=== PATIENT | male | born 1955 | race Caucasian/White ===

== ENCOUNTER 2021-09-23 11:29 | Emergency (ER) | payer MEDICARE, SELFPAY ==
[2021-09-23 11:44] VITALS: BP 149/95; PULSE 78; RESP 18; TEMP 36.6; O2SAT 96; BMI 21.6
[2021-09-23 11:59] VITALS: BP 139/87; PULSE 82; RESP 14; O2SAT 96
--- NOTE | 2021-09-23 12:18 | ED_ITS ---
Documented by User: HERNAN Gilbert 09/23/21 13:17 HPI - COVID General: Chief Complaint: COVID symptoms Stated Complaint: COVID+ home test Time Seen by Provider: 09/23/21 11:58 Triage information: Has fever, cough or shortness of breath . History of Present Illness: Patient at home Covid test today that was positive. Patient started symptoms 2 days ago. With fever chills and body aches. Patient is fully immunized with 3 immunizations. Patient is desiringoral treatment. Prior covid testing: yes, results known Prior testing date: 09/23/21 COVID 19 common symptoms: positive fever(s), chills and body aches; negative dyspnea, headache(s), throat pain, nausea or vomiting COVID 19 other sytmptoms: negative chest pain Onset (ago): day(s) (2) Severity: mild Pertinent comorbid conditions: heart disease (History of stents) COVID Results: No Data to Display Review of Systems Const: Reports: fever(s), chills and body aches Eyes: Denies: eye discomfort ENMT: Denies: throat pain Card: Denies: chest pain Resp: Denies: dyspnea GI: Denies: abdominal pain, nausea or vomiting Skin/Breast: Denies: rash Neuro: Denies: headache(s) Psych: Denies: depression or suicidal ideation Physical Exam Const: COMMON NORMALS: no acute distress, patient oriented x3 and alert HENMT: COMMON NORMALS: normocephalic and external ears normal HEAD & SCALP: normocephalic EXTERNAL EAR: Yes external ears normal Eye: COMMON NORMALS: EOMs intact bilaterally Neck/C-Spine: COMMON NORMALS: no JVD Resp: COMMON NORMALS: normal respiratory effort and No use of accessory muscles Cardio: COMMON NORMALS: no JVD GI: INSPECTION: Yes normal to inspection Extremity: COMMON NORMALS: normal to inspection and full ROM Neuro: COMMON NORMALS: patient oriented x3 SENSORIUM/ORIENTATION: Yes alert Psych: COMMON NORMALS: mental status grossly normal Skin: COMMON NORMALS: no rashes or lesions noted GENERAL SKIN EXAM: no rashes or lesions noted Course Vital Signs: Vital signs: Vital Signs Temperature 98.2 F 09/23/21 13:27 Pulse Rate 80 09/23/21 13:27 Respiratory Rate 15 09/23/21 13:27 Blood Pressure 141/93 09/23/21 13:27 Pulse Oximetry 96 09/23/21 13:27 MDM - COVID Medical Decision Making Patient with a positive Covid home 19 test this morning. Patient has mild symptoms. Symptoms started 2 days ago. Patient was given a prescription for Paxil bed lab work was done and outpatient order was filled out through the [facility] pharmacy. Lab Data : 09/23/21 12:45 Laboratory Results Sodium 140 mmol/L (136-145) 09/23/21 12:45 Potassium 4.2 mmol/L (3.5-5.1) 09/23/21 12:45 Chloride 105 mmol/L (98-107) 09/23/21 12:45 Carbon Dioxide 28 mmol/L (22-29) 09/23/21 12:45 Anion Gap 11.2 (5-19) 09/23/21 12:45 BUN 12 mg/dL (8-23) 09/23/21 12:45 Creatinine 1.0 mg/dL (0.7-1.2) 09/23/21 12:45 GFR Calculation 75.0 mL/min (90-130) L 09/23/21 12:45 Glucose 103 mg/dL (65-115) 09/23/21 12:45 Calculated Osmolality 290 mOsm/kg (285-295) 09/23/21 12:45 Calcium 9.0 mg/dL (8.5-10.5) 09/23/21 12:45 Total Bilirubin 0.3 mg/dL (0.15-1.2) 09/23/21 12:45 AST 36 U/L (0-40) 09/23/21 12:45 ALT 31 U/L (0-41) 09/23/21 12:45 Alkaline Phosphatase 70 IU/L (40-130) 09/23/21 12:45 Total Protein 6.8 g/dL (6.6-8.7) 09/23/21 12:45 Albumin 4.4 g/dL (3.5-5.2) 09/23/21 12:45 Globulin 2.4 g/dL (1.3-4.6) 09/23/21 12:45 No Data to Display Discharge Plan Discharge Patient Disposition: Home Clinical Impression: COVID-19 Condition: Stable Prescriptions: No Action Aspir-81 81 mg Tablet,Delayed Release (Dr/Ec) 81 mg PO BEDTIME 0RF omeprazole 20 mg capsule,delayed release(DR/EC) 20 mg PO QAM 0RF rosuvastatin 40 mg tablet 40 mg PO BEDTIME 0RF Discharge Orders: Discharge ED (Routine); Ordered 09/23/21 Ordered By: Amauri Jean Baptiste Discharge Diet: Usual diet Discharge Activity: Increase activity as tolerated Patient Instructions: COVID-19 (Coronavirus Disease 2019) (ED) Activity Restrictions/Additional Instructions: prescription order was faxed over to [facility] outpatient pharmacy. 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 Coding Level of Care Code ED Specimen Preparation Assistant for Chg Fwd Exam Comprehensive Documented by User: Jaime Castro MD 09/29/21 21:10 HPI - COVID General: Chief Complaint: COVID symptoms Stated Complaint: COVID+ home test Time Seen by Provider: 09/23/21 11:58 COVID Results: No Data to Display Course Vital Signs: Vital signs: Vital Signs Temperature 98.2 F 09/23/21 13:27 Pulse Rate 80 09/23/21 13:27 Respiratory Rate 15 09/23/21 13:27 Blood Pressure 141/93 09/23/21 13:27 Pulse Oximetry 96 09/23/21 13:27 MDM - COVID Medical Decision Making Patient with a positive Covid home 19 test this morning. Patient has mild symptoms. Symptoms started 2 days ago. Patient was given a prescription for Paxil bed lab work was done and outpatient order was filled out through the [facility] pharmacy. I have reviewed documentation by Amauri Jean Baptiste GEOCHEMISTRY TEACHER. I suspect he meant paxlovid. Jaime Castro MD Emergency Medicine Lab Data : 09/23/21 12:45 Laboratory Results Sodium 140 mmol/L (136-145) 09/23/21 12:45 Potassium 4.2 mmol/L (3.5-5.1) 09/23/21 12:45 Chloride 105 mmol/L (98-107) 09/23/21 12:45 Carbon Dioxide 28 mmol/L (22-29) 09/23/21 12:45 Anion Gap 11.2 (5-19) 09/23/21 12:45 BUN 12 mg/dL (8-23) 09/23/21 12:45 Creatinine 1.0 mg/dL (0.7-1.2) 09/23/21 12:45 GFR Calculation 75.0 mL/min (90-130) L 09/23/21 12:45 Glucose 103 mg/dL (65-115) 09/23/21 12:45 Calculated Osmolality 290 mOsm/kg (285-295) 09/23/21 12:45 Calcium 9.0 mg/dL (8.5-10.5) 09/23/21 12:45 Total Bilirubin 0.3 mg/dL (0.15-1.2) 09/23/21 12:45 AST 36 U/L (0-40) 09/23/21 12:45 ALT 31 U/L (0-41) 09/23/21 12:45 Alkaline Phosphatase 70 IU/L (40-130) 09/23/21 12:45 Total Protein 6.8 g/dL (6.6-8.7) 09/23/21 12:45 Albumin 4.4 g/dL (3.5-5.2) 09/23/21 12:45 Globulin 2.4 g/dL (1.3-4.6) 09/23/21 12:45 No Data to Display Discharge Plan Discharge Patient Disposition: Home Clinical Impression: COVID-19 Condition: Stable Prescriptions: No Action Aspir-81 81 mg Tablet,Delayed Release (Dr/Ec) 81 mg PO BEDTIME 0RF omeprazole 20 mg capsule,delayed release(DR/EC) 20 mg PO QAM 0RF rosuvastatin 40 mg tablet 40 mg PO BEDTIME 0RF Discharge Orders: Discharge ED (Routine); Ordered 09/23/21 Ordered By: Amauri Jean Baptiste Discharge Diet: Usual diet Discharge Activity: Increase activity as tolerated Patient Instructions: COVID-19 (Coronavirus Disease 2019) (ED) Activity Restrictions/Additional Instructions: prescription order was faxed over to [facility] outpatient pharmacy. 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 Coding Level of Care Code ED Specimen Preparation Assistant for Chg Fwd Exam Comprehensive
[2021-09-23 13:06] LABS: Alanine Aminotransferase 31 U/L (0-41); Albumin Level 4.4 g/dL (3.5-5.2); Alkaline Phosphatase 70 IU/L (40-130); Anion Gap 11.2 (5-19); Aspartate Amino Transferase 36 U/L (0-40); Blood Urea Nitrogen 12 mg/dL (8-23); Carbon Dioxide 28 mmol/L (22-29); Chloride 105 mmol/L (98-107); Globulin 2.4 g/dL (1.3-4.6); Glucose 103 mg/dL (65-115); Osmolality Calculated 290 mOsm/kg (285-295); Potassium 4.2 mmol/L (3.5-5.1); Sodium 140 mmol/L (136-145); Total Bilirubin 0.3 mg/dL (0.15-1.2); Total Protein 6.8 g/dL (6.6-8.7)
[2021-09-23 13:24] VITALS: BP 141/93; PULSE 80; RESP 15; TEMP 36.8; O2SAT 96
[2021-09-23 13:25] VITALS: O2SAT 96
[2021-09-23 13:27] VITALS: BP 141/93; PULSE 80; RESP 15; TEMP 36.8; O2SAT 96
== END 2021-09-23 13:20 | disposition home or self-care (01) ==
PROVIDERS: Emergency Provider Nurse Practitioner Family
DX: U07.1 COVID-19 (principal)
CPT/HCPCS: 80053; 99282